=== PATIENT | male | born 1985 | race Caucasian/White ===

== ENCOUNTER 2023-07-30 13:34 | Inpatient (IN) | payer BC ==
[~2023-07-30] VITALS: Ht 170.2 cm; Wt 93.0 kg
[2023-07-30 17:53] VITALS: BP 148/94; PULSE 111; RESP 18; TEMP 98.6; O2SAT 98
[2023-07-30 18:05] LABS: INR 1.01; PARTIAL THROMBOPLASTIN TIME 25.7 seconds (23.8-35.5)
[2023-07-30 18:06] LABS: BASOPHILS % 0.7 % (0.0-1.0); EOSINOPHILS # (AUTO) 0.3 (0.0-0.4); EOSINOPHILS % 5.3 % (0.0-6.0); HEMATOCRIT 38.5 % (38.2-49.6); HEMOGLOBIN 13.8 g/dL (14.0-18.0); LYMPHOCYTES # (AUTO) 1.1 (1.0-3.2); LYMPHOCYTES % 19.4 % (18.0-39.1); MEAN CORPUSCULAR HEMOGLOBIN 30.4 pg (28-32); MEAN CORPUSCULAR HGB CONC 35.8 g/dL (31-35); MEAN CORPUSCULAR VOLUME 84.8 fL (81-99); MONOCYTES # (AUTO) 0.6 (0.2-0.8); MONOCYTES % 11.1 % (4.4-11.3); NEUTROPHILS # (AUTO) 3.6 (2.1-6.9); NEUTROPHILS % 63.3 % (38.7-80.0); PLATELET COUNT 180 x10e3/uL (140-360); RED BLOOD COUNT 4.54 x10e6/uL (4.3-5.7); RED CELL DISTRIBUTION WIDTH 13.7 % (11.7-14.4); WHITE BLOOD COUNT 5.66 x10e3/uL (4.8-10.8)
[2023-07-30 18:15] LABS: ALANINE AMINOTRANSFERASE 12 IU/L (0-55); ALBUMIN 3.9 g/dL (3.5-5.0); ALKALINE PHOSPHATASE 64 IU/L (40-150); ANION GAP 14.5 mmol/L (8-16); BILIRUBIN,TOTAL 0.4 mg/dL (0.2-1.2); BLOOD UREA NITROGEN 38 mg/dL (7-26); BUN/CREATININE RATIO 12 (6-25); CARBON DIOXIDE 22 mmol/L (22-29); CHLORIDE 106 mmol/L (98-107); CREATININE, SERUM 3.11 mg/dL (0.72-1.25); EST GLOMERULAR FILTRATION RATE 25 ML/MIN (>=60); GLUCOSE 108 mg/dL (74-118); POTASSIUM 3.5 mmol/L (3.5-5.1); SODIUM 139 mmol/L (136-145); TOTAL PROTEIN 7.8 g/dL (6.5-8.1)
[2023-07-30] MEDS ORDERED: CIPRO500 MG PO (18:16)
[2023-07-30] MEDS ORDERED: AMLODIPINE BESYL5 MG PO (18:16)
[2023-07-30 18:21] VITALS: BP 148/94; PULSE 111; RESP 18; TEMP 98.6; O2SAT 98
[2023-07-30] MEDS ORDERED: EXCEDRIN EXTRA1 EAC1 PO (18:34)
[2023-07-30 18:38] LABS: CALCIUM 14.5 mg/dL (8.4-10.2)
[2023-07-30] MEDS ORDERED: ONDANSETRON HCL INJ 2MG/ML 2ML 2 MG/ML VIAL IV PRN (18:45)
[2023-07-30] MEDS ORDERED: ACETAMINOPHEN 325 MG TAB PO PRN (18:45)
[2023-07-30] MEDS ORDERED: HYDROCODONE/APAP 5MG-325MG TAB PO PRN (18:45)
[2023-07-30 18:46] LABS: BILIRUBIN,URINE NEGATIVE (NEGATIVE); CLARITY,URINE SL CLOUDY (CLEAR); COLOR,URINE YELLOW (YELLOW); GLUCOSE, URINE NEGATIVE (NEGATIVE); KETONES,URINE NEGATIVE (NEGATIVE); LEUKOCYTE ESTERASE ,URINE MODERATE (NEGATIVE); NITRITE,URINE NEGATIVE (NEGATIVE); PH,URINE 6 (5 - 7); PROTEIN,URINE DIPSTICK NEGATIVE (NEGATIVE); URINE UROBILINOGEN 0.2 mg/dL (0.2 - 1)
[2023-07-30 18:56] LABS: BACTERIA,URINE MODERATE /HPF; CALCIUM OXALATE CRYSTALS,UR MODERATE (FEW)
[2023-07-30] MEDS: SODIUM CHLORIDE 0.9% 1000ML 1,000 ML IV ONE ×2 (19:18→22:05)
[2023-07-30 20:00] VITALS: BP_SYST 128; BP_SYST 148; BP_DIAS 78; BP_DIAS 94; PULSE 83; RESP 18; RESP 20; TEMP 98.2; TEMP 98.6; O2SAT 100; O2SAT 98
[2023-07-30] MEDS: SODIUM CHLORIDE 0.9% 1000ML 1,000 ML IV SCH (20:38)
[2023-07-30 20:43] VITALS: BP 128/78; PULSE 83; RESP 20; TEMP 98.2; O2SAT 100
[2023-07-30] MEDS ORDERED: SODIUM CHLORIDE 0.9% 1000ML 2,790 ML IV ONE (21:00)
[2023-07-31] VITALS (9 sets, daily range): BP systolic 130–166; BP diastolic 76–95; PULSE 69–79; RESP 16–20; TEMP 97.8–98.6; O2SAT 98–100
[2023-07-31 06:36] LABS: CALCIUM IONIZED 1.5 mmol/L (1.09-1.30)
[2023-07-31 08:16] LABS: ALBUMIN 3.3 g/dL (3.5-5.0); ANION GAP 15.9 mmol/L (8-16); BILIRUBIN,TOTAL 0.4 mg/dL (0.2-1.2); CALCIUM 11.5 mg/dL (8.4-10.2); CREATININE, SERUM 2.64 mg/dL (0.72-1.25); MAGNESIUM 1.7 MG/DL (1.3-2.1); POTASSIUM 3.9 mmol/L (3.5-5.1); TOTAL PROTEIN 6.6 g/dL (6.5-8.1)
[2023-07-31] MEDS ORDERED: ALBUTEROL/IPRATROPIUM 3 ML NEB NEB PRN (10:00)
[2023-07-31] MEDS ORDERED: BENZONATATE 100 MG CAP PO PRN (10:00)
[2023-07-31] MEDS ORDERED: MELATONIN 5 MG TABLET PO PRN (10:00)
[2023-07-31] MEDS ORDERED: DIPHENHYDRAMINE HCL 25 MG CAP PO PRN (10:00)
[2023-07-31] MEDS ORDERED: SIMETHICONE 80 MG CHEW PO PRN (10:00)
[2023-07-31] MEDS ORDERED: LIDOCAINE 4% PATCH TP PRN (10:00)
[2023-07-31] MEDS ORDERED: ONDANSETRON HCL INJ 2MG/ML 2ML 2 MG/ML VIAL IV PRN (10:00)
[2023-07-31] MEDS ORDERED: DOCUSATE SODIUM 100 MG CAP PO PRN (10:00)
[2023-07-31] MEDS ORDERED: DEXTROSE 50% SYRINGE 50 ML IV PRN (10:00)
[2023-07-31] MEDS ORDERED: HYDRALAZINE HCL 20 MG/ML VIAL IV PRN (10:00)
[2023-07-31] MEDS ORDERED: ACETAMINOPHEN 325 MG TAB PO PRN (10:00)
[2023-07-31] MEDS: CIPROFLOXACIN 250 MG TAB PO SCH (10:34)
[2023-07-31] MEDS ORDERED: SEVOFLURANE INHAL SOLN 250 ML PEN BTL ONE (13:04)
[2023-07-31] MEDS ORDERED: EYE LUBRICANT OPTH OINT 3.5GM TUBE OP ONE (13:04)
[2023-07-31] MEDS ORDERED: ONDANSETRON HCL INJ 2MG/ML 2ML 2 MG/ML VIAL ONE (13:04)
[2023-07-31] MEDS ORDERED: DEXAMETHASONE SOD PHOS INJ 4 MG/ML SDV ONE (13:04)
[2023-07-31] MEDS ORDERED: PROPOFOL IV EMULSION 10 MG/ML 20 ML VIAL ONE (13:04)
[2023-07-31] MEDS ORDERED: METOCLOPRAMIDE HCL 10 MG/2ML VIAL ONE (13:04)
[2023-07-31] MEDS ORDERED: CEFTRIAXONE 1 GM VIAL ONE (13:04)
[2023-07-31] MEDS ORDERED: LIDOCAINE HCL 2% LOCAL INJ 5 ML SDV VIAL INJ ONE (13:04)
[2023-07-31] MEDS: PREDNISONE 20 MG TAB PO SCH (15:52)
[2023-07-31 17:17] LABS: ANION GAP 13.8 mmol/L (8-16); CALCIUM 11.3 mg/dL (8.4-10.2); CREATININE, SERUM 2.5 mg/dL (0.72-1.25); POTASSIUM 3.8 mmol/L (3.5-5.1)
[2023-07-31] MEDS: SODIUM CHLORIDE 0.9% 1000ML 1,000 ML IV ONE (17:41)
[2023-08-01] VITALS (13 sets, daily range): BP systolic 133–179; BP diastolic 80–101; PULSE 72–96; RESP 17–20; TEMP 97.3–98.8; O2SAT 95–100
[2023-08-01 06:25] LABS: BASOPHILS % 0.2 % (0.0-1.0); EOSINOPHILS % 0.7 % (0.0-6.0); HEMATOCRIT 38.6 % (38.2-49.6); HEMOGLOBIN 13.2 g/dL (14.0-18.0); LYMPHOCYTES # (AUTO) 0.9 (1.0-3.2); LYMPHOCYTES % 15.1 % (18.0-39.1); MEAN CORPUSCULAR HEMOGLOBIN 29.8 pg (28-32); MEAN CORPUSCULAR HGB CONC 34.2 g/dL (31-35); MEAN CORPUSCULAR VOLUME 87.1 fL (81-99); MONOCYTES # (AUTO) 0.5 (0.2-0.8); MONOCYTES % 7.6 % (4.4-11.3); NEUTROPHILS # (AUTO) 4.5 (2.1-6.9); NEUTROPHILS % 75.9 % (38.7-80.0); PLATELET COUNT 165 x10e3/uL (140-360); RED BLOOD COUNT 4.43 x10e6/uL (4.3-5.7); RED CELL DISTRIBUTION WIDTH 13.7 % (11.7-14.4); WHITE BLOOD COUNT 5.91 x10e3/uL (4.8-10.8)
[2023-08-01 07:00] LABS: ANION GAP 13.9 mmol/L (8-16); CALCIUM 11.9 mg/dL (8.4-10.2); CREATININE, SERUM 2.21 mg/dL (0.72-1.25); POTASSIUM 3.9 mmol/L (3.5-5.1)
[2023-08-01 07:15] LABS: MAGNESIUM 1.6 MG/DL (1.3-2.1); PHOSPHORUS 5.5 MG/DL (2.3-4.7)
[2023-08-01 07:23] LABS: THYROID STIMULATING HORMONE 0.757 uIU/mL (0.350-4.940)
[2023-08-01] MEDS: PANTOPRAZOLE SOD 40 MG TABEC PO SCH (07:30)
[2023-08-01] MEDS ORDERED: SODIUM CHLORIDE 0.9% 1000ML 2,790 ML IV ONE ×2 (14:00→14:15)
[2023-08-01] MEDS: NIFEDIPINE CR 30 MG TAB PO SCH (14:20)
[2023-08-01] MEDS: PAMIDRONATE DISODIUM 60 MG in SODIUM CHLORIDE 0.9% 500ML 500 ML IV ONE (14:20)
[2023-08-02] VITALS (11 sets, daily range): BP systolic 136–165; BP diastolic 87–103; PULSE 78–98; RESP 18–20; TEMP 97.5–98.5; O2SAT 96–100
[2023-08-02 05:57] LABS: BASOPHILS % 0.6 % (0.0-1.0); EOSINOPHILS # (AUTO) 0.2 (0.0-0.4); HEMATOCRIT 37.9 % (38.2-49.6); LYMPHOCYTES # (AUTO) 0.9 (1.0-3.2); LYMPHOCYTES % 19.5 % (18.0-39.1); MEAN CORPUSCULAR HGB CONC 34.3 g/dL (31-35); MEAN CORPUSCULAR VOLUME 87.3 fL (81-99); MONOCYTES # (AUTO) 0.3 (0.2-0.8); MONOCYTES % 7.4 % (4.4-11.3); NEUTROPHILS # (AUTO) 3.1 (2.1-6.9); NEUTROPHILS % 66.9 % (38.7-80.0); PLATELET COUNT 158 x10e3/uL (140-360); RED BLOOD COUNT 4.34 x10e6/uL (4.3-5.7); RED CELL DISTRIBUTION WIDTH 13.7 % (11.7-14.4); WHITE BLOOD COUNT 4.62 x10e3/uL (4.8-10.8)
[2023-08-02 06:17] LABS: ANION GAP 13.3 mmol/L (8-16); CALCIUM 11.7 mg/dL (8.4-10.2); CREATININE, SERUM 2.17 mg/dL (0.72-1.25); MAGNESIUM 1.3 MG/DL (1.3-2.1); PHOSPHORUS 4.4 MG/DL (2.3-4.7)
[2023-08-02 06:21] LABS: POTASSIUM 3.3 mmol/L (3.5-5.1)
[2023-08-02 06:56] LABS: CALCIUM IONIZED 1.7 mmol/L (1.09-1.30)
[2023-08-02] MEDS ORDERED: BUPIVACAINE 0.25% 30ML SDV ONE (07:44)
[2023-08-02] MEDS ORDERED: IOPAMIDOL 610MG/1ML 300 MG/ML VIAL IV ONE (07:44)
[2023-08-02] MEDS: HYDROCODONE/APAP 7.5MG-325MG 1 EA TAB PO PRN (10:19)
[2023-08-02] MEDS: PREDNISONE 10 MG TAB PO ONE (10:21)
[2023-08-02] MEDS ORDERED: FENTANYL CITRATE/PF 100MCG/2 ML INJ ONE ×2 (13:05→14:20)
[2023-08-02] MEDS: LACTULOSE SYRUP 20 GM/30 ML UDC PO ONE (17:05)
[2023-08-02] MEDS: POTASSIUM CHLORIDE 20 MEQ TAB CR PO ONE (17:06)
[2023-08-02] MEDS: DOCUSATE SODIUM 100 MG CAP PO SCH (17:08)
[2023-08-02] MEDS: NIFEDIPINE CR 30 MG TAB PO SCH (17:08)
[2023-08-02] MEDS: FUROSEMIDE INJ 10 MG/ML 4 ML VIAL IV ONE (17:09)
[2023-08-03] VITALS (7 sets, daily range): BP systolic 135–162; BP diastolic 87–114; PULSE 87–95; RESP 17–20; TEMP 97.7–98.4; O2SAT 100
[2023-08-03 05:52] LABS: BASOPHILS % 0.2 % (0.0-1.0); EOSINOPHILS # (AUTO) 0.1 (0.0-0.4); EOSINOPHILS % 1.1 % (0.0-6.0); HEMATOCRIT 38.5 % (38.2-49.6); LYMPHOCYTES # (AUTO) 1.1 (1.0-3.2); LYMPHOCYTES % 16.3 % (18.0-39.1); MEAN CORPUSCULAR HEMOGLOBIN 29.5 pg (28-32); MEAN CORPUSCULAR HGB CONC 33.8 g/dL (31-35); MEAN CORPUSCULAR VOLUME 87.3 fL (81-99); MONOCYTES # (AUTO) 0.6 (0.2-0.8); MONOCYTES % 9.6 % (4.4-11.3); NEUTROPHILS # (AUTO) 4.8 (2.1-6.9); NEUTROPHILS % 72.3 % (38.7-80.0); PLATELET COUNT 172 x10e3/uL (140-360); RED BLOOD COUNT 4.41 x10e6/uL (4.3-5.7); RED CELL DISTRIBUTION WIDTH 13.7 % (11.7-14.4); WHITE BLOOD COUNT 6.58 x10e3/uL (4.8-10.8)
[2023-08-03 06:31] LABS: CALCIUM IONIZED 1.5 mmol/L (1.09-1.30)
[2023-08-03 06:44] LABS: ANION GAP 14.2 mmol/L (8-16); CREATININE, SERUM 2.4 mg/dL (0.72-1.25); MAGNESIUM 1.2 MG/DL (1.3-2.1)
[2023-08-03 06:47] LABS: POTASSIUM 3.2 mmol/L (3.5-5.1)
[2023-08-03] MEDS ORDERED: MAGNESIUM HYDROXIDE 30 ML UDC PO PRN (09:15)
[2023-08-03] MEDS: POTASSIUM CHLORIDE 20 MEQ TAB CR PO PRN (10:06)
[2023-08-03] MEDS: PREDNISONE 10 MG TAB PO ONE (10:07)
[2023-08-03] MEDS: MAGNESIUM HYDROXIDE 30 ML UDC PO ONE (10:15)
[2023-08-03] MEDS ORDERED: ONDANSETRON HCL 4 MG ORAL DISINTEGRATING TAB PO PRN (14:30)
[2023-08-03] MEDS: MAGNESIUM SULFATE 2GM/50ML 50 ML IV ONE (17:25)
[2023-08-03] MEDS: FUROSEMIDE INJ 10 MG/ML 4 ML VIAL IV ONE (17:25)
[2023-08-03] MEDS: POTASSIUM CHLORIDE 20 MEQ TAB CR PO ONE (17:25)
[2023-08-03] MEDS: SODIUM CHLORIDE 0.9% 1000ML 1,000 ML IV ONE (17:26)
[2023-08-04] VITALS (7 sets, daily range): BP systolic 132–144; BP diastolic 79–106; PULSE 82–99; RESP 16–20; TEMP 97.7–98.5; O2SAT 98–100
[2023-08-04 05:51] LABS: BASOPHILS % 0.5 % (0.0-1.0); EOSINOPHILS # (AUTO) 0.2 (0.0-0.4); EOSINOPHILS % 2.9 % (0.0-6.0); HEMATOCRIT 40.3 % (38.2-49.6); HEMOGLOBIN 13.7 g/dL (14.0-18.0); LYMPHOCYTES % 18.7 % (18.0-39.1); MEAN CORPUSCULAR HEMOGLOBIN 29.5 pg (28-32); MEAN CORPUSCULAR VOLUME 86.9 fL (81-99); MONOCYTES # (AUTO) 0.5 (0.2-0.8); MONOCYTES % 9.2 % (4.4-11.3); NEUTROPHILS # (AUTO) 3.8 (2.1-6.9); PLATELET COUNT 161 x10e3/uL (140-360); RED BLOOD COUNT 4.64 x10e6/uL (4.3-5.7); RED CELL DISTRIBUTION WIDTH 13.8 % (11.7-14.4); WHITE BLOOD COUNT 5.56 x10e3/uL (4.8-10.8)
[2023-08-04 06:15] LABS: CALCIUM IONIZED 1.3 mmol/L (1.09-1.30)
[2023-08-04 06:27] LABS: ANION GAP 14.3 mmol/L (8-16); CALCIUM 10.1 mg/dL (8.4-10.2); CREATININE, SERUM 2.24 mg/dL (0.72-1.25); MAGNESIUM 1.7 MG/DL (1.3-2.1); PHOSPHORUS 3.2 MG/DL (2.3-4.7)
[2023-08-04 06:29] LABS: POTASSIUM 3.3 mmol/L (3.5-5.1)
[2023-08-04] MEDS: POTASSIUM CHLORIDE 20 MEQ TAB CR PO ONE (13:01)
[2023-08-04] MEDS: MAGNESIUM SULFATE 2GM/50ML 50 ML IV ONE (13:02)
[2023-08-04] MEDS: SODIUM BICARBONATE 650 MG TAB PO SCH (13:02)
[2023-08-04] MEDS ORDERED: POTASSIUM CHLORIDE 20 MEQ TAB CR PO ONE (16:15)
[2023-08-07 00:09] LABS: LD1 ISOENZYMES 28 % (17-32); LD2 ISOENZYMES 37 % (25-40); LD3 ISOENZYMES 20 % (17-27); LD4 ISOENZYMES 8 % (5-13)
[2023-08-07 13:55] LABS: LD5 ISOENZYMES 7 % (4-20)
== END 2023-08-04 17:32 | disposition home or self-care (01) | DRG 629 ==
LOC: MED/SURG3 17:12
PROVIDERS: ADMIT Internal Medicine; ATTEND Internal Medicine
PROC: BT141ZZ Fluoroscopy of Kidneys, Ureters and Bladder using Low Osmolar Contrast (ICD-10-PCS; 2023-08-02)
PROC: 07BH0ZX Excision of Right Inguinal Lymphatic, Open Approach, Diagnostic (ICD-10-PCS; principal; 2023-08-02 07:59)
PROC: 0T788DZ Dilation of Bilateral Ureters with Intraluminal Device, Via Natural or Artificial Opening Endoscopic (ICD-10-PCS; 2023-08-02 07:59)
DX: E83.52 Hypercalcemia (principal); E87.21 Acute metabolic acidosis; N13.2 Hydronephrosis with renal and ureteral calculous obstruction; N17.9 Acute kidney failure, unspecified; N39.0 Urinary tract infection, site not specified; E87.6 Hypokalemia; E83.42 Hypomagnesemia; E79.0 Hyperuricemia without signs of inflammatory arthritis and tophaceous disease; E83.39 Other disorders of phosphorus metabolism; R59.1 Generalized enlarged lymph nodes; D86.9 Sarcoidosis, unspecified; I10 Essential (primary) hypertension; I05.9 Rheumatic mitral valve disease, unspecified; K05.10 Chronic gingivitis, plaque induced; D49.0 Neoplasm of unspecified behavior of digestive system; Z11.52 Encounter for screening for COVID-19
CPT/HCPCS: 36415; 71045; 71250; 74019; 74176; 74420; 76770; 80048; 80053; 81001; 83615; 83625; 83735; 83970; 84100; 84443; 84550; 85025; 85610; 85730; 87086; 88300; 88305; 94799; C1758; C1769; C2617; J0696; J1100; J1940; J2001; J2405; J2430; J2765; J3475; J7030; J7040; J7512; U0002

== ENCOUNTER → 2023-10-22 | Day surgery (SDC) | payer BC ==
[2023-10-21 13:46] LABS: BASOPHILS # (AUTO) 0.1 (0.0-0.1); EOSINOPHILS # (AUTO) 0.3 (0.0-0.4); EOSINOPHILS % 6.4 % (0.0-6.0); HEMATOCRIT 43.7 % (38.2-49.6); HEMOGLOBIN 14.7 g/dL (14.0-18.0); LYMPHOCYTES # (AUTO) 1.2 (1.0-3.2); LYMPHOCYTES % 24.1 % (18.0-39.1); MEAN CORPUSCULAR HEMOGLOBIN 30.5 pg (28-32); MEAN CORPUSCULAR HGB CONC 33.6 g/dL (31-35); MEAN CORPUSCULAR VOLUME 90.7 fL (81-99); MONOCYTES # (AUTO) 0.5 (0.2-0.8); MONOCYTES % 8.9 % (4.4-11.3); NEUTROPHILS % 59.4 % (38.7-80.0); PLATELET COUNT 162 x10e3/uL (140-360); RED BLOOD COUNT 4.82 x10e6/uL (4.3-5.7); WHITE BLOOD COUNT 5.03 x10e3/uL (4.8-10.8)
[2023-10-21 14:16] LABS: ANION GAP 12.6 mmol/L (8-16); CALCIUM 12.1 mg/dL (8.4-10.2); CREATININE, SERUM 2.75 mg/dL (0.72-1.25); POTASSIUM 3.6 mmol/L (3.5-5.1); URIC ACID 11.8 mg/dL (4.8-8.0)
[~2023-10-22] MED LIST: ACETAMINOPHEN 1000 MG/100 ML 100 ML IV ONE; AMLODIPINE BESYL5 MG PO; AZO1 EACH; CIPRO500 MG PO; DEXAMETHASONE SOD PHOS INJ 4 MG/ML SDV ONE; DEXMEDETOMIDINE HCL 200 MCG/2 ML VIAL ONE; EXCEDRIN EXTRA1 EAC1 PO; FENTANYL CITRATE/PF 100MCG/2 ML INJ ONE; FIBER LAX625 MG PO; IOPAMIDOL 610MG/1ML 300 MG/ML VIAL IV ONE; KETOROLAC TROMETHAMINE 30 MG/ML VIAL ONE; LIDOCAINE HCL 2% LOCAL INJ 5 ML SDV VIAL INJ ONE; NIFEDIPINE ER30 M1 PO; ONDANSETRON HCL INJ 2MG/ML 2ML 2 MG/ML VIAL ONE; PROPOFOL IV EMULSION 10 MG/ML 20 ML VIAL ONE; SEVOFLURANE INHAL SOLN 250 ML PEN BTL ONE
[2023-10-22] MEDS: CEFTRIAXONE 1 GM VIAL ONE (13:17)
[2023-10-22] MEDS: GENTAMICIN 80MG/NS 100 ML 200 ML IV ONE (13:18)
[2023-10-22] MEDS: LACTATED RINGER'S 1,000 ML ONE (13:18)
[2023-10-22] MEDS: PHENAZOPYRIDINE HCL 100 MG TAB ONE (17:00)
[2023-10-22] MEDS: ACETAMINOPHEN/CODEINE 300MG - 30MG TAB ONE (17:04)
[2023-10-22 17:05] VITALS: TEMP 97.1
[2023-10-22 17:20] VITALS: BP 137/95; PULSE 85; RESP 16; O2SAT 97
[2023-10-22] MEDS: ONDANSETRON HCL 4 MG ORAL DISINTEGRATING TAB ONE (17:32)
== END | disposition home or self-care (01) ==
LOC: OR 12:39
PROVIDERS: ATTEND Urology
DX: N20.0 Calculus of kidney (principal); Z46.6 Encounter for fitting and adjustment of urinary device; N35.819 Other urethral stricture, male, unspecified site; R39.15 Urgency of urination; I10 Essential (primary) hypertension; D86.9 Sarcoidosis, unspecified; F17.200 Nicotine dependence, unspecified, uncomplicated; Z01.812 Encounter for preprocedural laboratory examination; Z01.818 Encounter for other preprocedural examination; Z79.899 Other long term (current) drug therapy; Z68.32 Body mass index [BMI] 32.0-32.9, adult
CPT/HCPCS: 36415; 52356; 74018; 74420; 80048; 84550; 85025; 87086; 93005; C1769; C2617; J0131; J0696; J1100; J1580; J1885; J2001; J2405; J2704; J3010; J7121; Q0162; Q9967

== ENCOUNTER → 2024-02-11 | Day surgery (SDC) | payer BC ==
[~2024-02-11] MED LIST changes: -DEXMEDETOMIDINE HCL 200 MCG/2 ML VIAL ONE; -IOPAMIDOL 610MG/1ML 300 MG/ML VIAL IV ONE; +METAMUCIL FIBE3.4 GM PO; +MIDAZOLAM HCL 2 MG/2 ML VIAL ONE
[2024-02-11] MEDS: GENTAMICIN 80MG/NS 100 ML 200 ML IV ONE (08:59)
[2024-02-11] MEDS: CEFTRIAXONE 1 GM VIAL ONE (09:00)
[2024-02-11 09:01] LABS: BASOPHILS % 0.8 % (0.0-1.0); EOSINOPHILS # (AUTO) 0.2 (0.0-0.4); EOSINOPHILS % 3.8 % (0.0-6.0); HEMATOCRIT 44.7 % (38.2-49.6); HEMOGLOBIN 14.8 g/dL (14.0-18.0); LYMPHOCYTES # (AUTO) 0.9 (1.0-3.2); LYMPHOCYTES % 16.5 % (18.0-39.1); MEAN CORPUSCULAR HEMOGLOBIN 30.3 pg (28-32); MEAN CORPUSCULAR HGB CONC 33.1 g/dL (31-35); MEAN CORPUSCULAR VOLUME 91.6 fL (81-99); MONOCYTES # (AUTO) 0.6 (0.2-0.8); MONOCYTES % 10.7 % (4.4-11.3); NEUTROPHILS # (AUTO) 3.6 (2.1-6.9); PLATELET COUNT 172 x10e3/uL (140-360); RED BLOOD COUNT 4.88 x10e6/uL (4.3-5.7); RED CELL DISTRIBUTION WIDTH 13.2 % (11.7-14.4); WHITE BLOOD COUNT 5.32 x10e3/uL (4.8-10.8)
[2024-02-11] MEDS: LACTATED RINGER'S 1,000 ML ONE (09:01)
[2024-02-11 09:23] LABS: ANION GAP 17.1 mmol/L (8-16); CALCIUM 11.7 mg/dL (8.4-10.2); CREATININE, SERUM 2.66 mg/dL (0.72-1.25); URIC ACID 13.3 mg/dL (4.8-8.0)
[2024-02-11 09:29] LABS: POTASSIUM 3.1 mmol/L (3.5-5.1)
[2024-02-11 12:56] VITALS: TEMP 98.7
[2024-02-11] MEDS: KETOROLAC TROMETHAMINE 30 MG/ML VIAL ONE (13:15)
[2024-02-11] MEDS: PHENAZOPYRIDINE HCL 100 MG TAB ONE (13:15)
[2024-02-11 13:31] VITALS: BP 147/100; PULSE 77; RESP 18; O2SAT 100
== END | disposition home or self-care (01) ==
LOC: OR 07:32
PROVIDERS: ATTEND Urology
DX: N20.0 Calculus of kidney (principal); N20.1 Calculus of ureter; N13.5 Crossing vessel and stricture of ureter without hydronephrosis; Z46.6 Encounter for fitting and adjustment of urinary device; N13.30 Unspecified hydronephrosis; N35.819 Other urethral stricture, male, unspecified site; Q54.8 Other hypospadias; Q62.61 Deviation of ureter; L98.8 Other specified disorders of the skin and subcutaneous tissue; R80.9 Proteinuria, unspecified; N39.0 Urinary tract infection, site not specified; I12.9 Hypertensive chronic kidney disease with stage 1 through stage 4 chronic kidney disease, or unspecified chronic kidney disease; N18.9 Chronic kidney disease, unspecified; Z01.810 Encounter for preprocedural cardiovascular examination; D86.9 Sarcoidosis, unspecified; Z79.899 Other long term (current) drug therapy; Z68.32 Body mass index [BMI] 32.0-32.9, adult
CPT/HCPCS: 36415; 52332; 52352; 52356; 74018; 74420; 80048; 84550; 85025; 88300; 93005; C1758; C1766; C1769; C2617; J0131; J0696; J1100; J1580; J1885; J2003; J2250; J2405; J2704; J3010; J7121

== ENCOUNTER → 2024-03-31 | Day surgery (SDC) | payer BC ==
[2024-03-30 13:12] LABS: BASOPHILS % 0.6 % (0.0-1.0); EOSINOPHILS # (AUTO) 0.2 (0.0-0.4); EOSINOPHILS % 3.6 % (0.0-6.0); HEMATOCRIT 41.8 % (38.2-49.6); HEMOGLOBIN 14.4 g/dL (14.0-18.0); LYMPHOCYTES % 19.8 % (18.0-39.1); MEAN CORPUSCULAR HEMOGLOBIN 29.9 pg (28-32); MEAN CORPUSCULAR HGB CONC 34.4 g/dL (31-35); MEAN CORPUSCULAR VOLUME 86.7 fL (81-99); MONOCYTES # (AUTO) 0.6 (0.2-0.8); MONOCYTES % 12.7 % (4.4-11.3); NEUTROPHILS # (AUTO) 3.1 (2.1-6.9); NEUTROPHILS % 62.9 % (38.7-80.0); PLATELET COUNT 160 x10e3/uL (140-360); RED BLOOD COUNT 4.82 x10e6/uL (4.3-5.7); RED CELL DISTRIBUTION WIDTH 13.3 % (11.7-14.4); WHITE BLOOD COUNT 4.95 x10e3/uL (4.8-10.8)
[2024-03-30 13:41] LABS: ANION GAP 17.1 mmol/L (8-16); CALCIUM 12.3 mg/dL (8.4-10.2); CREATININE, SERUM 2.72 mg/dL (0.72-1.25); POTASSIUM 4.1 mmol/L (3.5-5.1); URIC ACID 12.1 mg/dL (4.8-8.0)
[~2024-03-31] MED LIST changes: -KETOROLAC TROMETHAMINE 30 MG/ML VIAL ONE; -MIDAZOLAM HCL 2 MG/2 ML VIAL ONE; +PIPERACILLIN/TAZOBACTAM 3.375 GM VIAL ONE; +SODIUM CHLORIDE 0.9% 0 ML ONE
[2024-03-31] MEDS: LACTATED RINGER'S 1,000 ML ONE (06:52)
[2024-03-31] MEDS: GENTAMICIN 80MG/NS 100 ML 200 ML IV ONE (06:53)
[2024-03-31 09:54] VITALS: TEMP 97.6
[2024-03-31] MEDS: PHENAZOPYRIDINE HCL 100 MG TAB ONE (10:20)
[2024-03-31 10:55] VITALS: BP 135/89; PULSE 79; RESP 16; O2SAT 98
== END | disposition home or self-care (01) ==
LOC: OR 05:24
PROVIDERS: ATTEND Urology
DX: N20.0 Calculus of kidney (principal); N20.1 Calculus of ureter; Z46.6 Encounter for fitting and adjustment of urinary device; N13.30 Unspecified hydronephrosis; A63.0 Anogenital (venereal) warts; D36.7 Benign neoplasm of other specified sites; Z01.812 Encounter for preprocedural laboratory examination; Z01.818 Encounter for other preprocedural examination
CPT/HCPCS: 14001; 17111; 36415; 52332; 52352; 52356; 74018; 74420; 80048; 84550; 85025; 88300; 88304; C1766; C1769; C2617; J0131; J0690; J1100; J1580; J2003; J2405; J2704; J3010; J7121; J2543; J7050

== ENCOUNTER → 2024-07-14 | Day surgery (SDC) | payer BC ==
[2024-07-13 09:57] LABS: BASOPHILS % 0.4 % (0.0-1.0); EOSINOPHILS # (AUTO) 0.2 (0.0-0.4); HEMATOCRIT 38.8 % (38.2-49.6); HEMOGLOBIN 13.6 g/dL (14.0-18.0); LYMPHOCYTES # (AUTO) 0.8 (1.0-3.2); LYMPHOCYTES % 16.8 % (18.0-39.1); MEAN CORPUSCULAR HEMOGLOBIN 30.5 pg (28-32); MEAN CORPUSCULAR HGB CONC 35.1 g/dL (31-35); MONOCYTES # (AUTO) 0.6 (0.2-0.8); MONOCYTES % 11.9 % (4.4-11.3); NEUTROPHILS # (AUTO) 3.2 (2.1-6.9); NEUTROPHILS % 66.7 % (38.7-80.0); PLATELET COUNT 183 x10e3/uL (140-360); RED BLOOD COUNT 4.46 x10e6/uL (4.3-5.7); RED CELL DISTRIBUTION WIDTH 14.4 % (11.7-14.4); WHITE BLOOD COUNT 4.77 x10e3/uL (4.8-10.8)
[2024-07-13 11:18] LABS: ANION GAP 16.6 mmol/L (8-16); CALCIUM 12.3 mg/dL (8.4-10.2); CREATININE, SERUM 3.05 mg/dL (0.72-1.25); POTASSIUM 3.6 mmol/L (3.5-5.1); URIC ACID 12.6 mg/dL (4.8-8.0)
[~2024-07-14] MED LIST changes: -ACETAMINOPHEN 1000 MG/100 ML 100 ML IV ONE; +MIDAZOLAM HCL 2 MG/2 ML VIAL ONE; -PIPERACILLIN/TAZOBACTAM 3.375 GM VIAL ONE; -SODIUM CHLORIDE 0.9% 0 ML ONE
[2024-07-14] MEDS: SODIUM CHLORIDE 0.9% 1000ML 1,000 ML ONE (09:07)
[2024-07-14] MEDS: CEFTRIAXONE 1 GM VIAL ONE (09:07)
[2024-07-14] MEDS: GENTAMICIN 80MG/NS 100 ML 200 ML IV ONE (09:08)
[2024-07-14 12:43] VITALS: TEMP 97.8
[2024-07-14] MEDS: PHENAZOPYRIDINE HCL 100 MG TAB ONE (13:10)
[2024-07-14] MEDS: HYDROCODONE/APAP 5MG-325MG TAB ONE (13:10)
[2024-07-14 13:30] VITALS: BP 144/99; PULSE 88; RESP 16; O2SAT 97
== END | disposition home or self-care (01) ==
LOC: OR 08:23
PROVIDERS: ATTEND Urology
DX: N20.1 Calculus of ureter (principal); N20.0 Calculus of kidney; I10 Essential (primary) hypertension; E66.01 Morbid (severe) obesity due to excess calories; D86.9 Sarcoidosis, unspecified; Z46.6 Encounter for fitting and adjustment of urinary device; Z01.810 Encounter for preprocedural cardiovascular examination; Z01.812 Encounter for preprocedural laboratory examination; Z01.818 Encounter for other preprocedural examination; Z79.899 Other long term (current) drug therapy
CPT/HCPCS: 36415; 52356; 74018; 74420; 80048; 84550; 85025; 87086; 93005; C1766; C1769; C2617; J0696; J1100; J1580; J2003; J2250; J2405; J2704; J3010; J7030

== ENCOUNTER → 2024-10-20 | Day surgery (SDC) | payer BC ==
[~2024-10-20] MED LIST changes: +ACETAMINOPHEN 1000 MG/100 ML 100 ML IV ONE; +ALLOPURINOL100 MG PO
[2024-10-20] MEDS: GENTAMICIN 80MG/NS 100 ML 100 ML IV ONE (10:52)
[2024-10-20] MEDS: SODIUM CHLORIDE 0.9% 1000ML 1,000 ML ONE (10:52)
[2024-10-20] MEDS: CEFTRIAXONE 1 GM VIAL ONE (10:53)
[2024-10-20 11:10] LABS: BASOPHILS % 0.3 % (0.0-1.0); EOSINOPHILS % 3.6 % (0.0-6.0); LYMPHOCYTES % 18.6 % (18.0-39.1); MONOCYTES % 9.5 % (4.4-11.3); NEUTROPHILS % 67.7 % (38.7-80.0); RED CELL DISTRIBUTION WIDTH 13.5 % (11.7-14.4)
[2024-10-20 11:33] LABS: EST GLOMERULAR FILTRATION RATE 33.0 ML/MIN (>=60)
[2024-10-20] MEDS: PHENAZOPYRIDINE HCL 100 MG TAB ONE (13:10)
[2024-10-20 13:45] VITALS: BP 137/96; PULSE 74; RESP 17; O2SAT 99
== END | disposition home or self-care (01) ==
LOC: OR 10:33
PROVIDERS: ATTEND Urology
DX: N20.0 Calculus of kidney (principal); N20.1 Calculus of ureter; Z46.6 Encounter for fitting and adjustment of urinary device; N13.30 Unspecified hydronephrosis; N13.5 Crossing vessel and stricture of ureter without hydronephrosis; N32.89 Other specified disorders of bladder; R82.994 Hypercalciuria; I12.9 Hypertensive chronic kidney disease with stage 1 through stage 4 chronic kidney disease, or unspecified chronic kidney disease; N18.9 Chronic kidney disease, unspecified; D86.9 Sarcoidosis, unspecified; Z79.899 Other long term (current) drug therapy
CPT/HCPCS: 36415; 52356; 74420; 80048; 83970; 84550; 85025; 87086; 87186; 88300; C1766; C1769; C2617; J0131; J0696; J1100; J1580; J2003; J2250; J2405; J2704; J3010; J7030